=== PATIENT | female | born 1995 | race Caucasian/White ===

== ENCOUNTER 2016-09-27 01:02 | Emergency (ER) | payer OTHER ==
[~2016-09-27] VITALS: Ht 172.7 cm; Wt 77.1 kg
[~2016-09-27 01:02] MED LIST: KEFLEX500 M1 PO; LOTRIMIN AF12 GM TOP; PROAIR HFA8.5 GM INH; ZITHROMAX250 M2 PO
[2016-09-27 01:10] VITALS: BP 121/70
--- NOTE | 2016-09-27 01:37 | ED SKIN/ALLERGY COMPLAINT ---
History of Present Illness General Chief Complaint: General Adult Stated Complaint: BUMP ON TAILBONE NO KNOWN INJURY Source: patient, family, old records Exam Limitations: no limitations Vital Signs & Intake/Output Vital Signs & Intake/Output Vital Signs Date Time Temp Pulse Resp B/P Pulse O2 O2 Flow FiO2 Ox Delivery Rate 09/27 0130 98 Room Air 09/27 0110 97.2 82 18 121/70 98 Room Air Allergies Coded Allergies: NO KNOWN ALLERGIES (04/21/16) Reconcile Medications Amoxicillin/Potassium Clav (Augmentin 875-125 Tablet) 875 MG-125 MG TABLET 1 TAB PO BID pilonidal cyst Tramadol HCl (Ultram) 50 MG TABLET 1-2 TAB PO Q6PRN PRN severe pain Triage Nurses Notes Reviewed? yes Onset: Just prior to arrival Duration: day(s):, constant, continues in ED Timing: recent history Severity: mild Location: pilonidal Possible Factors: no cause identified No Modifying Factors: none Associated Symptoms: change in skin texture, swelling/mass/lumps LMP (ages 10-50): unknown : No Patient currently breastfeeds: No HPI: Prior to admission patient noted discomfort in the pilonidal area with hard skin tender to touch. She denies fever chills nausea vomiting diarrhea abdominal pain chest pain shortness breath headache dysuria bleeding Past History Travel History Traveled to [place] past 21 day No Medical History Any Pertinent Medical History? none Neurological: NONE EENT: NONE Cardiovascular: NONE Respiratory: NONE Gastrointestinal: NONE Hepatic: NONE Renal: NONE Musculoskeletal: NONE Psychiatric: NONE Endocrine: NONE Surgical History Surgical History: N Psychosocial History What is your primary language Danish Family History Hx Contributory? No Review of Systems Review of Systems Constitutional: Reports: no symptoms. EENTM: Reports: no symptoms. Respiratory: Reports: no symptoms. Cardiovascular: Reports: no symptoms. GI: Reports: no symptoms. Genitourinary: Reports: no symptoms. Musculoskeletal: Reports: no symptoms. Skin: Reports: see HPI, rash. Neurological/Psychological: Reports: no symptoms. Hematologic/Endocrine: Reports: no symptoms. Immunologic/Allergic: Reports: no symptoms. All Other Systems: Reviewed and Negative Physical Exam Physical Exam General Appearance: well developed/nourished, mild distress Head: atraumatic, normal appearance Eyes: Bilateral: normal appearance, PERRL, EOMI. Ears, Nose, Throat: normal pharynx, normal ENT inspection, hearing grossly normal Neck: normal inspection, supple, full range of motion, no midline tenderness Respiratory: normal breath sounds, chest non-tender, no respiratory distress, quiet respiration, lungs clear Cardiovascular: regular rate/rhythm, normal peripheral pulses, norml femoral pulses equa Peripheral Pulses: 4+ carotid (R), 4+ carotid (L) Gastrointestinal: normal bowel sounds, soft, non-tender, no organomegaly Back: normal inspection, normal range of motion, no vertebral tenderness Extremities: normal inspection, normal capillary refill, normal range of motion, no edema Neurologic/Psych: awake, alert, oriented x 3, normal mood/affect Reflexes: 2+: bicep (R), bicep (L). Skin: intact, normal color Skin Problem Location: pilonidal Skin Problem Character: swelling, tenderness, thickening Lymphatic: no anterior cervical yulissa Progress Differential Diagnosis: abscess/cellulitis, allergic reaction, contact dermatitis Plan of Care: Current Medications Sig/Roni Start time Last Medication Dose Stop Time Status Admin Amoxicillin/ 875 MG ONCE ONE 09/27 144 UNVr Clavulanate Potassium 09/27 145 (Augmentin) Tramadol HCl 50 MG ONCE ONE 09/27 144 UNVr (Ultram) 09/27 145 Departure Departure Time of Disposition: 137 Disposition: HOME OR SELF CARE Condition: Stable Clinical Impression Primary Impression: Infected pilonidal cyst Referrals: WESTON MILLIGAN JR, DO Call for surgical follow up Departure Forms: Customer Survey General Discharge Information Prescriptions: Current Visit Scripts Amoxicillin/Potassium Clav (Augmentin 875-125 Tablet) 1 TAB PO BID #20 TAB Tramadol HCl (Ultram) 1-2 TAB PO Q6PRN PRN severe pain #30 TAB
[2016-09-27] MEDS ORDERED: AUGMENTIN 875-1 EACH PO (01:39)
[2016-09-27] MEDS ORDERED: ULTRAM50 M1 PO (01:39)
== END 2016-09-27 02:00 ==
LOC: ERH 01:02
DX: L05.91 Pilonidal cyst without abscess (principal)

== ENCOUNTER 2017-01-05 23:37 | Emergency (ER) | payer OTHER ==
[~2017-01-05 23:37] MED LIST changes: +AUGMENTIN 875-1 EACH PO; +ULTRAM50 M1 PO
--- NOTE | 2017-01-05 23:51 | ED NECK/BACK PAIN COMPLAINT ---
History of Present Illness General Chief Complaint: Low Back Pain/Injury Stated Complaint: LOWER BACK PAIN Source: patient Exam Limitations: no limitations Vital Signs & Intake/Output Vital Signs & Intake/Output Vital Signs Date Time Temp Pulse Resp B/P B/P Pulse O2 O2 Flow FiO2 Mean Ox Delivery Rate 01/05 2353 97.2 94 18 125/79 98 Room Air Allergies Coded Allergies: No Known Allergies (01/05/17) Reconcile Medications Amoxicillin/Potassium Clav (Augmentin 875-125 Tablet) 875 MG-125 MG TABLET 1 TAB PO BID pilonidal cyst Cephalexin (Keflex) 500 MG CAPSULE 1 CAP PO 4 TIMES/DAY abscess Ibuprofen 800 MG TABLET 1 TAB PO TID PRN pain Sulfamethoxazole/Trimethoprim (Bactrim Ds Tablet) 800 MG-160 MG TABLET 1 TAB PO BID abscess Tramadol HCl (Ultram) 50 MG TABLET 1-2 TAB PO Q6PRN PRN severe pain Triage Note: TRIAGE: PATIENT TO ER FROM HOME REPORTING SEEN HERE 1 MONTH AGO FOR PYONIDAL CYST TO ABOVE [facility], "WENT AWAY AFTER ABX BUT CAME BACK COUPLE DAYS AGO." DENIES ANY DRAINAGE OR OPEN AREAS TO SITE. Triage Nurses Notes Reviewed? yes Onset: Gradual Duration: day(s): Timing: recent history Location: pilonidal area Radiation: none Context: "Swollen and it hurts" Method of Injury: unknown Loss of Consciousness: no loss of consciousness Modifying Factors: other (hurts with palpation) Associated Symptoms: swelling in region of lower back : No Patient currently breastfeeds: No HPI: 21 yo woman presents with an area of swelling and tenderness at her lower back for the the past 2 days. She notes, "I had it before, came here, and it went away... that was 2 months ago... and then the pain and swelling came back.... Now it really hurts... especially when I press on it." Past History Travel History Traveled to [place] past 21 day No Medical History Any Pertinent Medical History? see below for history Neurological: NONE EENT: NONE Cardiovascular: NONE Respiratory: NONE Gastrointestinal: NONE Hepatic: NONE Renal: NONE Musculoskeletal: NONE Psychiatric: NONE Endocrine: NONE Blood Disorders: NONE Cancer(s): NONE [employer]/Reproductive: NONE Surgical History Surgical History: N Psychosocial History What is your primary language Marshallese Tobacco Use: Refused to answer Family History Hx Contributory? No Review of Systems Review of Systems Constitutional: Reports: no symptoms. Eyes: Reports: no symptoms. Ears, Nose, Throat, Mouth: Reports: no symptoms. Respiratory: Reports: no symptoms. Cardiovascular: Reports: no symptoms. Gastrointestinal/Abdominal: Reports: no symptoms. Musculoskeletal: Reports: no symptoms. Skin: Reports: no symptoms. Neurological/Psychological: Reports: no symptoms. All Other Systems: Reviewed and Negative Physical Exam Physical Exam General Appearance: well developed/nourished, mild distress Head: atraumatic Eyes: Bilateral: normal appearance. Ears, Nose, Throat, Mouth: hearing grossly normal Neck: normal inspection, supple, full range of motion Respiratory: normal breath sounds Cardiovascular: regular rate/rhythm Gastrointestinal: soft, non-tender Back: in lower lumbar area there is a 2x2cm floculant area of swelling and tenderness c/w pilonidal cyst. Extremities: normal range of motion Neurologic/Psych: awake, alert, oriented x 3, normal mood/affect Skin: intact, normal color, warm/dry Progress Differential Diagnosis: abscess vs cellulitis vs other. Plan of Care: Orders Procedure Date/time Status CULTURE,BODY FLUID 01/06 49 Active Microbiology 01/06 49 BODY FLUID: Body Fluid Culture - ORD 01/06 49 BODY FLUID: Gram Stain - ORD Departure Departure Disposition: HOME OR SELF CARE Condition: Stable Clinical Impression Primary Impression: Pilonidal cyst with abscess Referrals: PATIENT HAS NO PRIMARY CARE DR (PCP/Family) Departure Forms: Customer Survey General Discharge Information Prescriptions: Current Visit Scripts Cephalexin (Keflex) 1 CAP PO 4 TIMES/DAY #56 CAP Sulfamethoxazole/Trimethoprim (Bactrim Ds Tablet) 1 TAB PO BID #28 TAB Ibuprofen 1 TAB PO TID PRN pain #30 TAB Comments I+D with excellent result. Procedures Incision and Drainage Site: pilonidal region Blade Size: 11 I & D Procedure: Yes: betadine prep, sterile drapes applied, sterile dressing applied, wick placed. Progress: drained approximately 6cc of foul smelling purulent discharge.... cultures sent... given history of taking augmentin several months ago, will cover for mrsa. pt will follow up this evening. pt also referred to general surgery.
[2017-01-05 23:53] VITALS: BP 125/79
[2017-01-05] MEDS ORDERED: BACTRIM DS TAB1 EACH PO (23:53)
[2017-01-05] MEDS ORDERED: IBUPROFEN800 M1 PO (23:53)
[2017-01-05] MEDS ORDERED: KEFLEX500 M1 PO (23:53)
[2017-01-06] MEDS ORDERED: IBUPROFEN800 M1 PO (00:47)
== END 2017-01-06 01:22 ==
LOC: ERH 23:37
DX: L05.01 Pilonidal cyst with abscess (principal)
CPT/HCPCS: 87070; 87075; 87205; 87071

== ENCOUNTER 2017-01-06 22:47 | Emergency (ER) | payer OTHER ==
[~2017-01-06] VITALS: Ht 167.6 cm; Wt 81.6 kg
[~2017-01-06 22:47] MED LIST changes: +BACTRIM DS TAB1 EACH PO; +IBUPROFEN800 M1 PO
[2017-01-06 23:15] VITALS: BP 130/78
--- NOTE | 2017-01-06 23:39 | ED SKIN/ALLERGY COMPLAINT ---
History of Present Illness General Chief Complaint: Suture Removal/Wound Recheck Stated Complaint: "WOUNDCHECK" Source: patient Exam Limitations: no limitations Vital Signs & Intake/Output Vital Signs & Intake/Output Vital Signs Date Time Temp Pulse Resp B/P B/P Pulse O2 O2 Flow FiO2 Mean Ox Delivery Rate 01/06 2334 Room Air 01/06 2315 98.4 98 18 130/78 97 Room Air Allergies Coded Allergies: No Known Allergies (01/05/17) Reconcile Medications Amoxicillin/Potassium Clav (Augmentin 875-125 Tablet) 875 MG-125 MG TABLET 1 TAB PO BID pilonidal cyst Cephalexin (Keflex) 500 MG CAPSULE 1 CAP PO 4 TIMES/DAY abscess Ibuprofen 800 MG TABLET 1 TAB PO TID PRN pain Sulfamethoxazole/Trimethoprim (Bactrim Ds Tablet) 800 MG-160 MG TABLET 1 TAB PO BID abscess Tramadol HCl (Ultram) 50 MG TABLET 1-2 TAB PO Q6PRN PRN severe pain Triage Note: PT TO ED FOR WOUND CHACK. HAD POLYNIDAL CYST DRAINED AND WHICK PLACED YESTERDAY. AFEBRILE IN TRIAGFE Triage Nurses Notes Reviewed? yes Onset: Abrupt Duration: day(s):, better Timing: recent history Severity: moderate Location: pilonidal area Possible Factors: pilonidal abscess - drained yesterday Associated Symptoms: drainage... now resolved : No Patient currently breastfeeds: No HPI: 21 yo woman had a pilonidal abscesss drained yesterday and returns for routine wound check. She shares that she is not in any pain. She was some drainage yesterday, but this resolved. She is otherwise well. She is tolerating her antibiotics. Past History Travel History Traveled to [place] past 21 day No Medical History Any Pertinent Medical History? see below for history Neurological: NONE EENT: NONE Cardiovascular: NONE Respiratory: NONE Gastrointestinal: NONE Hepatic: NONE Renal: NONE Musculoskeletal: POLYNIDAL CYST Psychiatric: NONE Endocrine: NONE Blood Disorders: NONE Cancer(s): NONE F[employer]/Reproductive: NONE Surgical History Surgical History: N Psychosocial History What is your primary language Tajik Tobacco Use: Current Daily Use Daily Tobacco Use Amount/Type: => 5 Cigarettes daily Family History Hx Contributory? No Review of Systems Review of Systems Constitutional: Reports: no symptoms. EENTM: Reports: no symptoms. Respiratory: Reports: no symptoms. Cardiovascular: Reports: no symptoms. GI: Reports: no symptoms. Genitourinary: Reports: no symptoms. Musculoskeletal: Reports: no symptoms. Skin: Reports: no symptoms. Neurological/Psychological: Reports: no symptoms. Hematologic/Endocrine: Reports: no symptoms. Immunologic/Allergic: Reports: no symptoms. All Other Systems: Reviewed and Negative Physical Exam Physical Exam General Appearance: well developed/nourished, mild distress Head: atraumatic Eyes: Bilateral: normal appearance. Ears, Nose, Throat: normal ENT inspection Neck: normal inspection, supple Respiratory: no respiratory distress Back: 1cm incision at arpit cleft... no drainage. non tender to palpation. Extremities: normal inspection, normal range of motion, no edema Neurologic/Psych: awake, alert, oriented x 3, normal mood/affect Skin: intact, normal color Lymphatic: no anterior cervical yulissa Progress Differential Diagnosis: abscess/cellulitis Plan of Care: gauze wick removed and replaced... clean dressing applied... pt instructed about wound care, and will follow up in 24 hours for re-check. Departure Departure Disposition: HOME OR SELF CARE Condition: Stable Clinical Impression Primary Impression: Pilonidal abscess Referrals: PATIENT HAS NO PRIMARY CARE DR (PCP/Family) Departure Forms: Customer Survey General Discharge Information
== END 2017-01-06 23:48 ==
LOC: ERH 22:47
DX: Z48.01 Encounter for change or removal of surgical wound dressing (principal)
CPT/HCPCS: 99281